=== PATIENT | female | born 1945 | race Caucasian/White ===

== ENCOUNTER 2016-09-02 09:09 | Day surgery (SDC) | payer MEDICARE, MEDICAID ==
[~2016-09-02] VITALS: Ht 152.4 cm; Wt 137.7 kg
[~2016-09-02 09:09] MED LIST: LIPITOR20 MG PO; LISINOPRIL-HCTZ1 TA2 PO; LOPRESSOR25 MG PO; ZOLOFT100 MG PO
[2016-09-02 11:01] LABS: BASOPHILS 0.2 % (0-2); EOSINOPHILS 1.5 % (0-7); HEMATOCRIT 41.6 % (36.0-48.0); HEMOGLOBIN 13.6 g/dL (12-16); IMMATURE GRANULOCYTES 0.2 % (0-5); LYMPHOCYTES 22.7 % (15-50); MCH 27.4 pg (26.0-34.0); MCHC 32.7 g/dL (31.0-37.0); MCV 83.9 fL (80.0-100.0); MEAN PLATELET VOLUME 10.3 fL (7.4-10.4); NEUTROPHILS 69.4 % (40-80); PLATELET COUNT 154 10x3/uL (130-400); RBC 4.96 10x6/uL (4.00-5.40); WBC 5.9 10x3/uL (4.8-10.8)
[2016-09-02 11:29] VITALS: BP 158/76; Ht 152.4 cm; Wt 137.7 kg
[2016-09-02 11:32] LABS: ANION GAP 12.7 mmol/L (8-16); CALCIUM 9.6 mg/dL (8.5-10.1); CARBON DIOXIDE 27.8 mmol/L (21.0-32.0); CREATININE - SERUM 1.2 mg/dL (0.6-1.3); POTASSIUM - SERUM 4.5 mmol/L (3.5-5.1)
--- NOTE | 2016-09-02 15:32 | NUR ---
1525 DRESSED. AWAKE & ALERT SITTING IN CHAIR @ BEDSIDE. GIVEN MED REC & NP OPS DISCHARGE INSTRUCTIONS. PT VOICED UNDERSTANDING. TO PRIVATE CAR PER WHEELCHAIR BY VOLUNTEER TO FRONT ENTRANCE FOR CAB/ BRACELET FORMER JACK TO CLINICAL NURSE EDUCATOR PATIENT. Eliane BOYER R.N.
--- NOTE | 2016-09-04 12:19 | OP ---
PATIENT NAME: NA CHEATHAM MEDICAL RECORD: [id number] :45 LOCATION:[facility] ADMISSION DATE: SURGEON: KARL LASSITER DO DATE OF OPERATION: 09/02/2016 PROCEDURE: EGD with balloon dilation. INDICATIONS FOR PROCEDURE: Esophageal ulcer without bleeding, as well as esophageal stenosis requiring dilation and dysphagia. SCOPE: Olympus video gastroscope. MEDICATIONS: Propofol 200 mg IV per anesthesia. ESTIMATED BLOOD LOSS: Minimal. COMPLICATIONS: None. FINDINGS: Informed consent was given. The patient was made comfortable with the above medication. After reaching an adequate level of sedation by slow IV push, the patient was placed on her left side. The endoscope was then advanced under direct visualization through the mouth to the second portion of the duodenum. The upper, middle, and distal thirds of the esophagus appeared normal. Just proximal to the GE junction, there was some stenosis, which did feel snug on the endoscope as it passed through this site. It did however, pass without prior dilation. The endoscope was advanced in the stomach and retroflexed to view the cardia, which appeared normal. The fundus and body of stomach appeared normal. There was evidence of a prior intervention in the form of a gastric stapling. 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 The antrum and prepyloric region of the stomach appeared normal. The endoscope was advanced beyond the pylorus into the duodenum where the bulb and second portion of the duodenum appeared normal. The scope was then brought back into the stomach and a 16-18 mm CRE balloon was placed through the working channel. The scope was withdrawn back up to the stenosis site and was dilated up to 17 mm maximum diameter successfully with 2 passes. The balloon was let down and the scope was removed from the patient. The patient tolerated the procedure well and there were no complications. IMPRESSION: 1. Esophageal stenosis just proximal to the GE junction, dilated up to 17 mm with a CRE balloon. 2. The previous esophageal ulceration site has healed. PLAN AND RECOMMENDATIONS: 1. Discharge home when recovery parameters are met. 2. Continue current medications. 3. Continue current diet. 4. Referral for motility study based on past abnormal esophagram showing questionable dysmotility in light of her ongoing dysphagia and esophageal stenosis, which has been dilated adequately to 17 mm. 5. Consider cardiac referral for workup of ongoing chest pain, which could be related to dysmotility of the esophagus as well versus angina. 6. Further recommendations to follow motility study, which will have be scheduled with an outlying facility as we do not have this equipment here. OPERATIVE REPORT [id number] NA CHEATHAM TRANSINT:[id number] Voice Confirmation ID: [id number] DOCUMENT ID: [id number] KRAL LASSITER DO at 1219 CC: [id number] DICTATION DATE: 09/02/16 1334 COST CONTROL ANALYST: 09/02/16 1654 [facility] 09/02/16 [facility] [address] [place] [address]
== END 2016-09-02 15:25 | disposition home or self-care (01) ==
LOC: D.OPS 09:09
PROVIDERS: Anesthesiology
DX: K22.10 Ulcer of esophagus without bleeding (principal); K22.2 Esophageal obstruction; I10 Essential (primary) hypertension; K21.9 Gastro-esophageal reflux disease without esophagitis; E66.01 Morbid (severe) obesity due to excess calories; Z68.43 Body mass index [BMI] 50.0-59.9, adult; Z01.812 Encounter for preprocedural laboratory examination